=== PATIENT | female | born 1990 | race American Indian/Alaskan Native ===

== ENCOUNTER 2016-07-12 11:31 | Emergency (ER) | payer SELFPAY ==
[2016-07-12 14:38] LABS: Bacteria,Urine 1+ /HPF (Negative); Bilirubin,Urine NEG (Negative); Blood,Urine SM (Negative); Ketones,Urine TR mg/dL (Negative); Leukocyte Esterase,Urine NEG (Negative); Mucus,Urine 3+ /HPF; Nitrite,Urine POS (Negative); Urobilinogen,Urine < 2.0 mg/dL (<2.0)
--- NOTE | 2016-07-12 15:40 | Emergency Department Report ---
HPI - General Chief Complaint: Upper Respiratory Infection Time Seen by Provider: 07/12/16 12:57 - HPI HPI: 26-year-old female presents today with body aches, headache, fever, nasal congestion 2 days. MAXIMUM TEMPERATURE 103. Patient states that her was sick and was diagnosed with a viral infection and put on antibiotics. Patient also states she feels stiffness and muscle spasm-like sensation in her lower back and suprapubic region. Denies trying any medication for symptomatic relief. Denies cough, nausea, vomiting, shortness of breath, chest pain, abdominal pain, burning upon urination, increased urinary frequency or urgency, blood in urine. ED Past Medical Hx - Past Medical History Previous Medical History?: Yes Additional medical history: vaginal delivery x1 - Surgical History Past Surgical History?: No - Social History Smoking Status: Never Smoker Substance Use Type: Non Opiate Pain - Medications Home Medications: Home Medications Medication Instructions Recorded Confirmed Last Taken Type Acetaminophen/Codeine [Tylenol #3] 1 tab PO Q6H PRN #20 tab 07/12/16 Unknown Rx Fluticasone [Flonase] 1 spray NS QDAY #1 bottle 07/12/16 Unknown Rx Oseltamivir [Tamiflu] 75 mg PO BID #10 cap 07/12/16 Unknown Rx ED Review of Systems ROS: Stated complaint: FEVER/SORE BODY/HEADACHE/ABD AREA SORE Other details as noted in HPI Constitutional: chills, fever Eyes: denies: eye pain ENT: congestion. denies: ear pain, throat pain Respiratory: denies: cough, shortness of breath, wheezing Cardiovascular: denies: chest pain, palpitations Endocrine: no symptoms reported Gastrointestinal: denies: abdominal pain, nausea, vomiting Genitourinary: denies: urgency, dysuria, frequency, discharge Neurological: headache. denies: weakness Physical Exam - Physical Exam Vital Signs: Vital Signs 07/12/16 11:55 Temperature 98.9 F Pulse Rate 108 H Respiratory 18 Rate Blood Pressure 108/75 O2 Sat by Pulse 100 Oximetry Physical Exam: GENERAL: The patient is well-developed and well-nourished. Patient is in NAD. HEAD: Normocephalic. Atraumatic. EYES: PERRL. EARS: External auditory canals and tympanic membranes clear; hearing grossly intact. NOSE: Normal nasal mucosa with no nasal discharge. THROAT: Positive for minimal erythema and tonsillomegaly. No tonsillar exudates noted. NECK: Supple, nontender, without lymphadenopathy. CHEST/LUNGS: Clear to auscultation throughout. HEART/CARDIOVASCULAR: Regular rate and rhythm. No murmurs, rubs or gallops. ABDOMEN: Positive for suprapubic tenderness to palpation.. Bowel sounds normoactive. No guarding or rebound tenderness. Negative for CVA tenderness bilaterally. EXTREMITIES: Peripheral pulses intact. Capillary refill less than 2 seconds. BACK: Full ROM. No midline or paraspinal tenderness to palpation. No tenderness to palpation of sciatic notch bilaterally. Negative straight-leg raise bilaterally. NEURO: Alert and oriented 3, normal gait, fluid speech, EOMs intact, normal facial sensation, strength exam 5/5 upper and lower extremities, GCS equals 15 ED Course Vital Signs 07/12/16 11:55 Temperature 98.9 F Pulse Rate 108 H Respiratory 18 Rate Blood Pressure 108/75 O2 Sat by Pulse 100 Oximetry ED Medical Decision Making - Lab Data Vital Signs 07/12/16 07/12/16 07/12/16 11:55 16:05 16:23 Temperature 98.9 F 100.2 F H Pulse Rate 108 H 77 Respiratory 18 19 18 Rate Blood Pressure 108/75 Blood Pressure 99/70 [Left] O2 Sat by Pulse 100 100 Oximetry - Medical Decision Making 26-year-old female presents today with headache, body aches, fever, nasal congestion 2 days. A rapid strep test is negative. Her rapid flu test is positive for influenza B. Patient is in no acute distress at this time. She will be discharged home and is encouraged to follow up with a primary care provider. She will be sent home on Tamiflu, Flonase, Tylenol 3 and is encouraged to return to the emergency room for any worsening symptoms. Critical care attestation.: If time is entered above; I have spent that time in minutes in the direct care of this critically ill patient, excluding procedure time. ED Disposition Clinical Impression: Influenza B Disposition: DISCHARGED TO HOME OR SELFCARE Is pt being admited?: No Does the pt Need Aspirin: No Condition: Stable Instructions: Influenza (ED) Additional Instructions: Follow-up with primary care provider. Return to the emergency department if symptoms worsen. Prescriptions: Acetaminophen/Codeine [Tylenol #3] 1 tab PO Q6H PRN #20 tab PRN Reason: Pain Fluticasone [Flonase] 1 spray NS QDAY #1 bottle Oseltamivir [Tamiflu] 75 mg PO BID #10 cap Referrals: PRIMARY CAREMD [Primary Care Provider] - 3-5 Days BOBBI SILVEIRA MD [Staff Physician] - 3-5 Days Forms: Accompanied Note, Work/School Release Form(ED) Time of Disposition: 15:42
[2016-07-12 16:06] VITALS: BP 99/70
[2016-07-12] MEDS ORDERED: MOTRIN PO ONE (16:10)
== END 2016-07-12 17:18 | disposition home or self-care (01) ==
LOC: ED 11:31
DX: J11.1 Influenza due to unidentified influenza virus with other respiratory manifestations (principal)
CPT/HCPCS: 81001; 81025; 87116; 87400; 87430; 99283

== ENCOUNTER 2017-01-24 07:27 | Emergency (ER) | payer SELFPAY ==
[2017-01-24 07:57] VITALS: BP 109/43
[2017-01-24] MEDS ORDERED: HYDROGEN PEROXIDE TP ONE (08:41)
[2017-01-24] MEDS ORDERED: HYDROGEN PEROXIDE ONE (08:46)
--- NOTE | 2017-01-24 10:32 | XRay Report ---
AP AND LATERAL LUMBOSACRAL SPINE: History: Low back pain. The vertebral bodies are well mineralized and normal in alignment and vertebral height with well preserved interspace distances. The visualized portions of the posterior elements are normal. IMPRESSION: Normal study.
--- NOTE | 2017-01-24 10:40 | Emergency Department Report ---
ED Back Pain/Injury HPI - General Chief Complaint: Earache Stated Complaint: EARACHE, HEADACHE, BREAST PAIN, BACK PAIN Time Seen by Provider: 01/24/17 08:31 Source: patient Limitations: No Limitations - History of Present Illness Initial Comments: Patient is a 26-year-old female who presents due to right ear pain x 1 day, patient also c/o breast pain x 2 months. Patient also c/o low back pain. Patient denies any falls or injury to her back. Patient states that she might have hurt her back at work. Patient denies any numbness, tingling, dysuria or hematuria. Patient denies any urinary or bowel incontinence. Patient denies any saddle anesthesia. Patient denies any nipple drainage, rash, redness or swelling in her breast. Patient states that she has bilateral breast pain. Patient states that she started having pain in her ear yesterday. MD Complaint: back pain Onset/Timin -: days(s) Similar Symptoms Previously: Yes Place: home Radiation: none Severity: moderate Quality: aching Consistency: intermittent Improves With: none Worsens With: none Context: unknown Associated Symptoms: denies other symptoms - Related Data Previous Rx's Medication Instructions Recorded Last Taken Type Acetaminophen/Codeine [Tylenol #3] 1 tab PO Q6H PRN #20 tab 07/12/16 Unknown Rx Fluticasone [Flonase] 1 spray NS QDAY #1 bottle 07/12/16 Unknown Rx Oseltamivir [Tamiflu] 75 mg PO BID #10 cap 07/12/16 Unknown Rx Acetaminophen/Codeine [Tylenol 1 tab PO Q6H PRN #15 tab 01/24/17 Unknown Rx /Codeine # 3 tab] Ibuprofen [Motrin 600 MG tab] 600 mg PO Q8H PRN #30 tablet 01/24/17 Unknown Rx Methocarbamol [Robaxin TAB] 750 mg PO Q8H PRN #15 tablet 01/24/17 Unknown Rx Neomy/Polymyx B/Hc (Otic) Soln 4 drops OD TID #1 bottle 01/24/17 Unknown Rx [Cortisporin (Otic) Soln] Allergies Allergy/AdvReac Type Severity Reaction Status Date / Time No Known Allergies Allergy Unverified 07/12/16 11:55 ED Review of Systems ROS: Stated complaint: EARACHE, HEADACHE, BREAST PAIN, BACK PAIN Other details as noted in HPI Comment: All other systems reviewed and negative Constitutional: no symptoms reported. denies: chills, diaphoresis, fever, malaise, weakness Eyes: denies: eye pain, eye discharge, vision change ENT: ear pain (right ear). denies: throat pain, dental pain, hearing loss, epistaxis, congestion Gastrointestinal: denies: abdominal pain, nausea, vomiting Genitourinary: other (bilateral breast pain) Musculoskeletal: back pain. denies: joint swelling, arthralgia, myalgia, other Skin: denies: rash, lesions Neurological: denies: headache ED Past Medical Hx - Past Medical History Previous Medical History?: No Additional medical history: vaginal delivery x1 - Surgical History Past Surgical History?: No - Social History Smoking Status: Never Smoker Substance Use Type: None - Medications Home Medications: Home Medications Medication Instructions Recorded Confirmed Last Taken Type Acetaminophen/Codeine [Tylenol #3] 1 tab PO Q6H PRN #20 tab 07/12/16 Unknown Rx Fluticasone [Flonase] 1 spray NS QDAY #1 bottle 07/12/16 Unknown Rx Oseltamivir [Tamiflu] 75 mg PO BID #10 cap 07/12/16 Unknown Rx Acetaminophen/Codeine [Tylenol 1 tab PO Q6H PRN #15 tab 01/24/17 Unknown Rx /Codeine # 3 tab] Ibuprofen [Motrin 600 MG tab] 600 mg PO Q8H PRN #30 tablet 01/24/17 Unknown Rx Methocarbamol [Robaxin TAB] 750 mg PO Q8H PRN #15 tablet 01/24/17 Unknown Rx Neomy/Polymyx B/Hc (Otic) Soln 4 drops OD TID #1 bottle 01/24/17 Unknown Rx [Cortisporin (Otic) Soln] ED Physical Exam - General Limitations: No Limitations General appearance: alert, in no apparent distress - Head Head exam: Present: atraumatic, normocephalic, normal inspection - Expanded ENT Exam Expanded Ear exam: Present: normal external inspection. Absent: auricular hematoma, auricular trauma TM/Canal exam: Cerumen Impaction: Right TM - Neck Neck exam: Present: normal inspection. Absent: tenderness, meningismus, full ROM, lymphadenopathy, thyromegaly - Respiratory Respiratory exam: Present: normal lung sounds bilaterally - Back Exam Back exam: Present: full ROM, tenderness (lumbar spine tenderness). Absent: CVA tenderness (R), CVA tenderness (L), muscle spasm, paraspinal tenderness, vertebral tenderness, rash noted - Neurological Exam Neurological exam: Present: alert, oriented X3, normal gait. Absent: motor sensory deficit - Psychiatric Psychiatric exam: Present: normal affect, normal mood - Skin Skin exam: Present: warm, dry, intact ED Course Vital Signs 01/24/17 07:53 Temperature 97.7 F Pulse Rate 64 Respiratory 16 Rate Blood Pressure 109/43 O2 Sat by Pulse 100 Oximetry ED Medical Decision Making - Radiology Data Radiology results: report reviewed, image reviewed interpreted by me: x-ray of the lumbar spine showed no acute osseous findings - Medical Decision Making Patient was in no acute distress, patient tenderness with palpation of the lumbar spine. Patient had tenderness with palpation of the right upper quadrant of the right breast, there was a palpable mobile nodule. Patient also had tenderness with palpation of the left upper quadrant of the left breast with a palpable mobile nodule. No erythema, no edema, no rash, no nipple drainage. Patient had cerumen impaction in the right ear. Hydrogen peroxide was applied into the right ear canal. The ear was irrigated twice and disimpacted. 3 of the lumbar spine did not show any acute osseous findings. Patient was discharged with Robaxin, Tylenol with codeine, ibuprofen and cortisporin to apply in right ear. patient was given information to follow up at [facility] or [facility] for her breast tenderness. patient was also given information to follow up with an patient registration specialist. - Differential Diagnosis lumbar strain, cerumen impaction, breast fibrocystic changes. Critical care attestation.: If time is entered above; I have spent that time in minutes in the direct care of this critically ill patient, excluding procedure time. ED Disposition Clinical Impression: Impacted cerumen of right ear, Breast pain in female Lumbar strain Qualifiers: Encounter type: initial encounter Qualified Code(s): S39.012A - Strain of muscle, fascia and tendon of lower back, initial encounter Disposition: TO HOME OR SELFCARE Is pt being admited?: No Does the pt Need Aspirin: No Condition: Good Instructions: Low Back Strain (ED), Cerumen Impaction (ED), Breast Self-exam ( ED) Additional Instructions: take robaxin 750 mg every 8 hours as needed for back pain, take ibuprofen 600mg every 8 hours as needed for pain. apply cortisporin 4 drops in the right ear 3 times a day for 7 days. take tylenol with codeine 1 tablet every 6 hours as needed for pain. Follow up with the provided patient registration specialist for your back pain and the breast clinic for your breast pain. Return to the ER for any complications. Prescriptions: Acetaminophen/Codeine [Tylenol /Codeine # 3 tab] 1 tab PO Q6H PRN #15 tab PRN Reason: Pain Ibuprofen [Motrin 600 MG tab] 600 mg PO Q8H PRN #30 tablet PRN Reason: Pain Methocarbamol [Robaxin TAB] 750 mg PO Q8H PRN #15 tablet PRN Reason: Muscle Spasm Neomy/Polymyx B/Hc (Otic) Soln [Cortisporin (Otic) Soln] 4 drops OD TID #1 bottle Referrals: SUMIT DOWELL MD [Staff Physician] - 3-5 Days [facility] [Outside] - 3-5 Days Time of Disposition: 10:40
== END 2017-01-24 10:48 | disposition home or self-care (01) ==
LOC: ED 07:27
DX: S39.012A Strain of muscle, fascia and tendon of lower back, initial encounter (principal); N64.4 Mastodynia; H61.21 Impacted cerumen, right ear; X58.XXXA Exposure to other specified factors, initial encounter; Y93.9 Activity, unspecified; Y99.9 Unspecified external cause status; Y92.89 Other specified places as the place of occurrence of the external cause
CPT/HCPCS: 72100; 99283